=== PATIENT | male | born 1970 | race Caucasian/White ===

== ENCOUNTER 2017-10-21 09:08 | Emergency (ER) | payer BC ==
[~2017-10-21] VITALS: Ht 188 cm; Wt 90.0 kg
[2017-10-21] MEDS ORDERED: ACETAMINOPHEN WITH CODEINE 300/30MG TABLET PO ONE ×2 (09:30→10:00)
[2017-10-21 12:45] VITALS: BP 150/81
== END 2017-10-21 12:45 | disposition home or self-care (01) ==
LOC: ER 09:34
DX: S82.402A Unspecified fracture of shaft of left fibula, initial encounter for closed fracture (principal); V49.09XA Driver injured in collision with other motor vehicles in nontraffic accident, initial encounter; W22.11XA Striking against or struck by driver side automobile airbag, initial encounter; Y93.89 Activity, other specified; Y92.89 Other specified places as the place of occurrence of the external cause; Y99.8 Other external cause status
CPT/HCPCS: 29505; 73560; 73590; 73610; 99284; Z7610